=== PATIENT | male | born 2000 | race Two or more races ===

== ENCOUNTER 2018-07-04 15:44 | Emergency (ER) | payer OTHER, SELFPAY ==
[~2018-07-04] VITALS: Ht 172.7 cm; Wt 61.2 kg
[2018-07-04 15:53] VITALS: BP 103/60
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
== END 2018-07-04 16:49 | disposition home or self-care (01) ==
LOC: ER 15:44
DX: H52.202 Unspecified astigmatism, left eye (principal); H57.12 Ocular pain, left eye
CPT/HCPCS: 99282; 99283; 99284

== ENCOUNTER 2020-01-09 11:25 | Emergency (ER) | payer SELFPAY ==
[~2020-01-09] VITALS: Ht 172.7 cm; Wt 62.3 kg
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
[2020-01-09 12:56] VITALS: BP 118/69
== END 2020-01-09 12:56 | disposition home or self-care (01) ==
LOC: ER 11:25
DX: H61.21 Impacted cerumen, right ear (principal); Z98.890 Other specified postprocedural states
CPT/HCPCS: 99282

== ENCOUNTER 2020-05-11 15:21 | Emergency (ER) | payer OTHER ==
[~2020-05-11] VITALS: Ht 172.7 cm; Wt 63.4 kg
[2020-05-11] MEDS ORDERED: IV NORMAL SALINE 1000ML BAG 1,000 ML IV ONE (16:30)
[2020-05-11] MEDS ORDERED: diphenhydrAMINE 50 MG/ML VIAL IVP ONE (16:30)
[2020-05-11] MEDS ORDERED: METOCLOPRAMIDE HCL 10 MG/2 ML VIAL. IVP ONE (16:30)
[2020-05-11] MEDS ORDERED: methylPREDNISolone SOD SUCC PF 125 MG/2 ML VIAL. IV ONE (16:30)
[2020-05-11] MEDS ORDERED: KETOROLAC 30 MG/ML VIAL. IVP ONE (16:30)
[2020-05-11 17:26] VITALS: BP 122/70
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
== END 2020-05-11 17:56 | disposition home or self-care (01) ==
LOC: ER 15:21
DX: G43.909 Migraine, unspecified, not intractable, without status migrainosus (principal); Z98.890 Other specified postprocedural states; Z88.2 Allergy status to sulfonamides
CPT/HCPCS: 96361; 96374; 96375; 99284; J1200; J1885; J2765; J2930; J7030

== ENCOUNTER 2020-05-31 22:16 | Emergency (ER) | payer OTHER ==
[~2020-05-31] VITALS: Ht 172.7 cm; Wt 63.0 kg
[2020-05-31 22:58] VITALS: BP 115/80
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
[2020-06-01] MEDS ORDERED: NAPROXEN 250 MG TABLET PO ONE (00:30)
[2020-06-01] MEDS ORDERED: NAPR-695 PO (00:31)
== END 2020-06-01 00:52 | disposition home or self-care (01) ==
LOC: ER 22:16
DX: M79.601 Pain in right arm (principal); R20.2 Paresthesia of skin; G43.909 Migraine, unspecified, not intractable, without status migrainosus; Z98.890 Other specified postprocedural states; Z88.2 Allergy status to sulfonamides
CPT/HCPCS: 99282